=== PATIENT | male | born 1975 | race Caucasian/White ===

== ENCOUNTER 2017-11-04 10:21 | Emergency (ER) | payer OTHER ==
[2017-11-04 10:28] VITALS: BP 123/78; PULSE 68; TEMP 98.8; BMI 29.6
[2017-11-04] MEDS ORDERED: LIDOCAINE VISCOUS 2% ORAL/TOP 100 ML BOTTLE MM ONE (11:23)
[2017-11-04] MEDS ORDERED: IBUPROFEN 400 MG TABLET (FP) PO ONE ×2 (11:29→11:34)
--- NOTE | 2017-11-04 11:33 | PDOC ---
History of Present Illness - General Chief Complaint: Wound Stated Complaint: Boil Time Seen by Provider: 11/04/17 11:11 History Source: Patient - History of Present Illness Timing/Duration: reports: constant, other (2 days) Quality: reports: severe Past History - Past Medical History Allergies/Adverse Reactions: Allergies Allergy/AdvReac Type Severity Reaction Status Date / Time No Known Allergies Allergy Verified 11/04/17 10:29 Home Medications: Ambulatory Orders Clindamycin [Cleocin -] 300 mg PO Q6HPO #28 capsule 11/04/17 Ibuprofen [Motrin -] 600 mg PO QID #28 tablet 11/04/17 COPD: No DVT: No - Suicide/Smoking/Psychosocial Hx Smoking History: Never smoked Information on smoking cessation initiated: No Hx Alcohol Use: No Drug/Substance Use Hx: No Substance Use Type: None Review of Systems - Review of Systems Constitutional: No: Chills, Fever ABD/GI: No: Constipated, Diarrhea, Nausea, Vomiting *Physical Exam - Vital Signs Last Vital Signs Temp Pulse Resp BP Pulse Ox 98.8 F 68 18 123/78 100 11/04/17 10:27 11/04/17 10:27 11/04/17 10:27 11/04/17 10:27 11/04/17 10:27 - Physical Exam General Appearance: Yes: Appropriately Dressed, Moderate Distress HEENT: positive: Normal Voice Neck: positive: Supple Respiratory/Chest: negative: Respiratory Distress Gastrointestinal/Abdominal: positive: Soft. negative: Tender Rectal Exam: positive: other (Protruding recal mass resembling hemorrhoid but draining copious purulent drainage with slight palpation) Integumentary: positive: Dry, Warm Neurologic: positive: Fully Oriented, Alert, Normal Mood/Affect Medical Decision Making - Medical Decision Making 11/04/17 11:31 41-year-old male, denies any past medical history, here with severe rectal pain and swelling for 2 days. Patient denies constipation , bright red blood per rectum, and no fever or chills. No trauma. No history of similar episode in the past. Sexually active w/ females only per pt See exam Draining rectal abscess S/p local anesthesia, wound was manually drained and dressing placed Tetanus UTD -Dc w/ abx, pain meds -Wound check in 2 days *DC/Admit/Observation/Transfer Diagnosis at time of Disposition: Perirectal abscess - Discharge Dispostion Disposition: HOME Condition at time of disposition: Improved - Prescriptions Prescriptions: Clindamycin [Cleocin -] 300 mg PO Q6HPO #28 capsule Ibuprofen [Motrin -] 600 mg PO QID #28 tablet - Referrals - Patient Instructions Printed Discharge Instructions: DI for Anal Abscess Additional Instructions: Usted tiene un absceso anal que se dren en la bernabe de emergencias. Pine antibi ticos y medicamentos para el dolor segn lo recetado. Despus de 24 horas, realice un francoise de asiento dos veces al da para ayudar con la inflamacin. Regrese a la bernabe de emergencias en 2 flores para verificar la herida Print Language: MONGOLIAN - Post Discharge Activity
== END 2017-11-04 12:11 | disposition home or self-care (01) ==
LOC: JERFT 10:21
DX: K61.1 Rectal abscess (principal)
CPT/HCPCS: 99281-25

== ENCOUNTER 2017-11-06 13:44 | Emergency (ER) | payer OTHER ==
[2017-11-06 13:51] VITALS: BP 126/71; PULSE 72; TEMP 98.5; BMI 29.0
--- NOTE | 2017-11-06 15:03 | PDOC ---
Suture Removal/Wound Check HPI - History of Present Illness Chief Complaint: Revisit,Wound Recheck Stated Complaint: Revisit RASH Time Seen by Provider: 11/06/17 14:50 History Source: Yes: Patient Exam Limitations: Yes: No Limitations Past History - Past Medical History Allergies/Adverse Reactions: Allergies Allergy/AdvReac Type Severity Reaction Status Date / Time No Known Allergies Allergy Verified 11/06/17 13:51 Home Medications: Ambulatory Orders NK [No Known Home Medication] 11/06/17 COPD: No DVT: No - Suicide/Smoking/Psychosocial Hx Smoking History: Never smoked Information on smoking cessation initiated: No Hx Alcohol Use: No Drug/Substance Use Hx: No Substance Use Type: None Suture Removal/Wound Check PE - Physical Exam Laceration/Wound Check Symptoms: reports: Improved. denies: Pain, Fever, Chills , Redness Current Severity Level: Mild Comments: buttock abscess Medical Decision Making - Medical Decision Making A/P: 41 y/o afebrile male here for a wound check. He was seen here a few days ago and had a buttock wound I&Ded. He has been taking antibiotics and states it feels much better. The wound appears well, with minimal erythema without active drainage. Encouraged the patient to complete the entire course of antibiotics, keep wound clean and dry and return to the ER with any worsening or concerning symptoms. *DC/Admit/Observation/Transfer Diagnosis at time of Disposition: Wound check, abscess - Discharge Dispostion Disposition: HOME Condition at time of disposition: Good - Referrals - Patient Instructions Printed Discharge Instructions: DI for Wound Infection Additional Instructions: Discharge Instructions: -Continue taking antibiotics and finish all of the pills. -Keep the wound clean and dry -Return to the ER with any worsening or concerning symptoms Instrucciones de descarga: -Contine tomando antibiticos y termine todas las pastillas. -Mantenga la herida limpia y seca -Volver a la bernabe de urgencias con cualquier empeoramiento o sntomas Print Language: [email or web address] - Post Discharge Activity
== END 2017-11-06 15:15 | disposition home or self-care (01) ==
LOC: JERFT 13:44
DX: Z48.01 Encounter for change or removal of surgical wound dressing (principal); L02.31 Cutaneous abscess of buttock
CPT/HCPCS: 99281-25